=== PATIENT | male | born 1940 ===

== ENCOUNTER 2016-10-19 13:12 | Emergency (ER) | payer MEDICARE | END 2016-10-19 15:43 | disposition home or self-care (01) | DX: S50.11XA Contusion of right forearm, initial encounter (principal); W18.39XA Other fall on same level, initial encounter; Y93.K1 Activity, walking an animal; Y92.009 Unspecified place in unspecified non-institutional (private) residence as the place of occurrence of the external cause; M19.031 Primary osteoarthritis, right wrist ==

== ENCOUNTER 2021-12-28 13:19 | Outpatient (CLI) | payer MEDICARE ==
[2021-12-29] MEDS ORDERED: ALBUTEROL 1 PUFF INH STA (11:02)
== END 2021-12-28 13:20 | disposition home or self-care (01) ==
LOC: RT 13:19
PROVIDERS: ATTEND Internal Medicine
DX: R06.2 Wheezing (principal); Z87.891 Personal history of nicotine dependence
CPT/HCPCS: 94060